=== PATIENT | male | born 1950 | race Caucasian/White ===

== ENCOUNTER 2020-05-09 09:32 | Day surgery (SDC) | payer MEDICARE, BC ==
[~2020-05-09 09:32] MED LIST: Lactated Ringers 1,000 ML IV SCH; Propofol 200 MG/20 ML SDV ONE; fentaNYL 100 MCG/2 ML SDV ONE
[2020-05-09] MEDS ORDERED: Propofol 200 MG/20 ML SDV ONE (10:56)
--- NOTE | 2020-05-10 09:33 | OR ---
PREOPERATIVE DIAGNOSIS: Anemia. POSTOPERATIVE DIAGNOSIS: Hemorrhagic gastritis. PROCEDURE PERFORMED: Esophagogastroduodenoscopy with biopsies. ANESTHESIA: MAC anesthesia. COMPLICATIONS: None. BLOOD LOSS: Minimal. FINDINGS: 1. There was mild antritis. 2. There was some hemorrhagic gastritis of the distal greater curve. 3. There was a small 1-2 cm hiatal hernia. 4. No abnormalities of the duodenum or esophagus. INDICATION FOR PROCEDURE: Mr. Meek is a 69-year-old male who was noted to have some anemia on his recent routine labs. He is perhaps mildly fatigued but otherwise asymptomatic. He denies any bloody or dark black stools. He does say he has some epigastric burning with tomatoes or salt. However, he denies any reflux symptoms. He is here for evaluation of his GI tract as a source of his bleeding. DETAILS OF PROCEDURE: After informed consent was obtained, the patient was brought to the procedure room and placed in left lateral decubitus position. MAC anesthesia was induced by Anesthesia colleagues. The bite block was placed. The endoscope was introduced into the mouth, passed through the upper esophageal sphincter down the esophagus into the stomach. The pylorus was intubated. The duodenum was examined up into the 3rd portion. There were no abnormalities of the duodenum. There was mild antritis as well as some hemorrhagic gastritis in the distal greater curve. Biopsies were obtained. Retroflexed view showed Hill grade 2 hiatus. There was perhaps a small 1-2 cm hiatal hernia. There was no evidence of esophagitis or Kirkpatrick's esophagus. The stomach was desufflated and the endoscope was withdrawn. We will proceed to colonoscopy. RECOMMENDATIONS: Recommend PPI therapy for at least 60 days to treat the hemorrhagic gastritis as that seems to be a likely source of his anemia. RKM: 05/09/2020 11:30:30 MODL: 05/09/2020 16:38:40 /[id number]
--- NOTE | 2020-05-10 09:36 | OR ---
PREOPERATIVE DIAGNOSIS: Anemia. POSTOPERATIVE DIAGNOSIS: Colon polyp x1. PROCEDURE PERFORMED: Total flexible colonoscopy with biopsies. ANESTHESIA: MAC anesthesia. COMPLICATIONS: None. BLOOD LOSS: Minimal. FINDINGS: 1. Cecal polyp, 3 mm, cold forceps. 2. No inflammation, masses, or AVM seen to explain his recent anemia. The polyp that was removed was small and unlikely to be the source of blood loss. START TIME: 1059. CECUM TIME: 1109. STOP TIME: 1121. BOWEL PREP: [place] class 3. INDICATIONS FOR PROCEDURE: Mr. Meek is a 69-year-old male who was noted to have anemia on recent routine labs. He does have some mild fatigue. He has not had any bloody or dark black stools. He does get FIT test screen which has always been negative, most recently about 18 months ago. He has never had a colonoscopy. He is here for evaluation for a GI source. DETAILS OF PROCEDURE: After informed consent was obtained, the patient was placed in left lateral decubitus position. MAC anesthesia was induced by Anesthesia colleagues. The colonoscope equipped with an Endocuff device was introduced into the rectum and advanced all the way to the cecum. The appendiceal orifice and ileocecal valve were photographed. I should mention that the photograph of the appendiceal orifice does not appear very clear when it was printed, but we did clearly identify that during the procedure. The colonoscope was then slowly withdrawn. No pathology was identified except for what is mentioned in the above findings section. Notably, I did not find a source of blood loss or any inflammation in the colon. He also did not have significant hemorrhoids. The retroflexed view was performed and then the colonoscope was withdrawn. The patient was awoken from MAC anesthesia by Anesthesia colleagues without incident. PATHOLOGY: Recommend repeat colonoscopy in years. RKM: 05/09/2020 11:34:04 MODL: 05/09/2020 16:51:12 /[id number]
== END 2020-05-09 12:30 | disposition home or self-care (01) ==
LOC: VM.SDS 09:32
PROVIDERS: ATTEND Student in an Organized Health Care Education/Training Program
DX: D12.0 Benign neoplasm of cecum (principal); K29.51 Unspecified chronic gastritis with bleeding; K44.9 Diaphragmatic hernia without obstruction or gangrene; K25.9 Gastric ulcer, unspecified as acute or chronic, without hemorrhage or perforation; D50.0 Iron deficiency anemia secondary to blood loss (chronic); I78.1 Nevus, non-neoplastic; E11.9 Type 2 diabetes mellitus without complications; G47.33 Obstructive sleep apnea (adult) (pediatric); E66.9 Obesity, unspecified; E53.8 Deficiency of other specified B group vitamins; Z01.812 Encounter for preprocedural laboratory examination; Z20.828 Contact with and (suspected) exposure to other viral communicable diseases; Z85.46 Personal history of malignant neoplasm of prostate; Z90.89 Acquired absence of other organs; Z98.890 Other specified postprocedural states; Z79.899 Other long term (current) drug therapy; Z79.84 Long term (current) use of oral hypoglycemic drugs; Z79.82 Long term (current) use of aspirin; Z88.5 Allergy status to narcotic agent; Z88.0 Allergy status to penicillin; Z68.34 Body mass index [BMI] 34.0-34.9, adult
CPT/HCPCS: 00813; 43239; 45380; 82962; J2704; J3010; J7120; U0002; 88305; 88342